=== PATIENT | male | born 1995 | race Caucasian/White ===

== ENCOUNTER 2020-04-11 16:57 | Emergency (ER) | payer BC, SELFPAY ==
--- NOTE | 2020-04-11 17:20 | PC.NURSE ---
PATIENT REPORTS HE WOULD RATHER BE EVALUATED IN [facility]. REPORT GIVEN TO Jerrica DIXON RN.
--- NOTE | 2020-04-11 17:31 | HMH.EDUTC ---
[facility] [place] Disposition Clinical Impression: Diarrhea Qualifiers: Diarrhea type: unspecified type Qualified Code(s): R19.7 - Diarrhea, unspecified Disposition: Home, Self-Care Condition on Discharge: Good Instructions: Diarrhea, Dicyclomine, DI for Nausea -- Adult Additional Instructions: If pain in abdomen returns go straight to ER for further evaluation and treatment *Take medication as prescribed Make sure to call back tomorrow for results of your diarrhea panel Return if needed Follow up with family doctor if no improvement or any worsening of symptoms Straight to ER if any life threatening symptoms ? Drink extra fluids with and between meals. If you have difficulty drinking, try very small amounts of water or suck on ice chips. ? Avoid fruit juices, as these do not replace minerals and can actually increase diarrhea. ? Children and adults can use sports drinks to replenish electrolytes. Younger children and infants should use products formulated for children, like oral rehydration solutions. ? Eat food in small amounts and let your stomach recover. ? Get lots of rest. You may feel tired or weak. ? No greasy or fried foods for the next 24-48 hours BRAT diet Bananas Rice Apples and Bono ? Make sure to drink plenty of liquids ? Return if needed ? Straight to ER if any life threatening symptoms ? Zofran as prescribed ? You was given an outpatient order for diarrhea panel, please collect specimen and bring back to outpatient lab then call back to the [facility] or follow up with family doctor for results ? Follow up with family doctor in the next 48-72 hours if no improvement or any worsening of symptoms Prescriptions: Ondansetron [Zofran 4mg ODT] 4 mg PO Q8HP PRN #10 tab.rapdis PRN Reason: Nausea Transmission Status: Sent to [facility] Dicyclomine HCl [Bentyl 10mg capsule] 10 mg PO TID PRN #15 cap PRN Reason: Cramping Transmission Status: Sent to [facility] Medical Decision Making - Nestor Inquiry Pt receiving controlled substance: No Nestor was queried for this patient: No Vital Signs: 04/11/20 17:13 04/11/20 17:37 Temperature 98.6 F 98.6 F Temperature Source Oral Oral Pulse Rate [Right Brachial] 108 H 108 H Respiratory Rate 16 16 Blood Pressure [Right Arm] 146/98 H 146/98 H Blood Pressure Mean [Right Arm] 114 114 Blood Pressure Source [Right Arm] Automatic Cuff Automatic Cuff Blood Pressure Position [Right Arm] Sitting Sitting 02 Sat by Pulse Oximetry 97 97 Oxygen Delivery Method Room Air Room Air - Lab Data Lab results reviewed: Yes: I reviewed the patient's lab results. Lab Results 04/11/20 17:38: Urine Color Dark yellow, Urine Appearance Clear, Urine pH 6.0, Ur Specific [place] 1.020, Urine Protein 1+, Urine Glucose (UA) Negative, Urine Ketones Negative, Urine Blood Negative, Urine Nitrate Negative, Urine Bilirubin 1+ A, Urine Urobilinogen 0.2, Ur Leukocyte Esterase Negative Orders (Tests/Meds): ED MEDICATIONS Discontinued Medications Generic Name Dose Route Start Last Admin Trade Name Freq PRN Reason Stop Dose Admin Dicyclomine HCl 10 mg 04/11/20 17:34 04/11/20 17:48 Bentyl 10mg Capsule PO 04/11/20 17:35 10 mg ONCE ONE Administration Ondansetron HCl 4 mg 04/11/20 17:34 04/11/20 17:48 Zofran 4mg Odt SL 04/11/20 17:35 4 mg ONCE ONE Administration - Reevaluation(s) Time: 18:20 Reevaluation #1: Discussed with patient and he said he is feeling better medication helped with cramping like pain States that he is feeling better Discussed with patient that due to drinking concerned with pancreatitis and could transfer patient to ED for further work up and evaluation and patient declined transfer states that he will return if pain worsens or continues [facility] [place] HPI - General Stated complaint: stomach pain Diarrhea Time Seen by Provider: 04/11/20 17:31 Mode of Arrival: Ambulatory Limitations: No Limitations Description of Symptoms (Recalled from Allyssa
[2020-04-11 17:37] VITALS: BP 146/98; PULSE 108; RESP 16; TEMP 37; O2SAT 97; BMI 34.3
[2020-04-11 17:39] LABS: Apearance,Urine Clear (Clear); Color,Urine Dark Yellow (Yellow); Glucose,Urine (UA) Negative (Negative); Protein,Urine 1+ (Negative)
[2020-04-11 17:40] LABS: Bilirubin,Urine 1+ (Negative); Blood, Urine Negative (Negative); Ketones,Urine Negative (Negative); UTC Leukocyte Esterase,Urine Negative (Negative); UTC Nitrate,Urine Negative (Negative); Urobilinogen,Urine 0.2 EU/dl (0.2)
[2020-04-11 18:36] VITALS: BP 146/98; PULSE 108; RESP 16; TEMP 37; O2SAT 97
[2020-04-12 14:01] LABS: Adenovirus F 40/41, stool Not Detected (NotDetected); Astrovirus Not Detected (NotDetected); Campylobacter Not Detected (NotDetected); Clostridium Difficile A/B, PCR Not Detected (NotDetected); Cyclospora Cayetanesis Not Detected (NotDetected); Entamoeba histolytica Not Detected (NotDetected); Enteroaggregative E coli Not Detected (NotDetected); Enteropathogenic E coli Not Detected (NotDetected); Enterotoxigenic E coli Not Detected (NotDetected); Giardia lamblia Not Detected (NotDetected); Norovirus Not Detected (NotDetected); Plesimonas Shigalloides, PCR Not Detected (NotDetected); Rotavirus A Not Detected (NotDetected); Salmonella, PCR Not Detected (NotDetected); Sapovirus Not Detected (NotDetected); Shiga-like toxin E coli Not Detected (NotDetected); Shigella Enterovasive E coli Not Detected (NotDetected); Vibrio Cholerae Not Detected (NotDetected); Vibrio, PCR Not Detected (NotDetected); Yersinia Entercolitica, PCR Not Detected (NotDetected)
[2020-04-12 15:53] LABS: Cryptosporidium Detected (NotDetected)
== END 2020-04-11 18:38 | disposition home or self-care (01) ==
PROVIDERS: Emergency Provider Nurse Practitioner
DX: R19.7 Diarrhea, unspecified (principal); R51 Headache
CPT/HCPCS: 81003; 87507; 99202; 99282

== ENCOUNTER → 2021-11-19 09:04 | Outpatient (CLI) | payer OTHER, SELFPAY | PROVIDERS: Visit Provider Nurse Practitioner | DX: U07.1 COVID-19 (principal) | CPT/HCPCS: C9803; U0003; U0005 ==

== ENCOUNTER 2022-02-27 21:04 | Emergency (ER) | payer OTHER, SELFPAY ==
[2022-02-27 21:12] VITALS: BMI 28.7
--- NOTE | 2022-02-27 21:12 | CT_ITS ---
PROCEDURE INFORMATION: Exam: CT Abdomen And Pelvis With Contrast Exam date and time: 02/27/2022 9:30 PM Age: 26 years old Clinical indication: Abdominal pain; Epigastric; Prior surgery; Surgery date: 6+ months; Surgery type: Appendix; Additional info: Abd pain left epigastric area TECHNIQUE: Imaging protocol: Computed tomography of the abdomen and pelvis with contrast. Radiation optimization: All CT scans at this facility use at least one of these dose optimization techniques: automated exposure control; mA and/or kV adjustment per patient size (includes targeted exams where dose is matched to clinical indication); or iterative reconstruction. Contrast material: ISOVUE; Contrast volume: 75 ml; Contrast route: IV; COMPARISON: No relevant prior studies available. FINDINGS: Lungs: Left hemidiaphragm elevation with left lower lung atelectasis. Liver: Normal. No mass. Gallbladder and bile ducts: Gallbladder is contracted. Pancreas: Normal. No ductal dilation. Spleen: Normal. No splenomegaly. Adrenal glands: Normal. No mass. Kidneys and ureters: Normal. No hydronephrosis. Stomach and bowel: Portions of the stomach are not included on these images. The visible portions demonstrate bowel wall thickening. Appendix: No evidence of appendicitis. Intraperitoneal space: Unremarkable. No free air. No significant fluid collection. Vasculature: Unremarkable. No abdominal aortic aneurysm. Lymph nodes: Unremarkable. No enlarged lymph nodes. Urinary bladder: Unremarkable as visualized. Reproductive: Unremarkable as visualized. Bones/joints: Unremarkable. No acute fracture. Soft tissues: Unremarkable. IMPRESSION: Portions of the stomach are not included on these images. The visible portions demonstrate bowel wall thickening. Please correlate for evidence of gastritis.
[2022-02-27 21:16] VITALS: BP 128/94; PULSE 101; RESP 18; TEMP 37; O2SAT 95; BMI 36.3
[2022-02-27 21:22] LABS: Microscopic, Urine URINE MICROSCOPIC (MICROSCOPIC)
[2022-02-27 21:25] LABS: Appearance,Urine CLEAR (Clear); Bilirubin,Urine Negative (Negative); Blood, Urine Negative (Negative); Color,Urine YELLOW (Yellow); Glucose,Urine (UA) Negative (Negative); Ketones,Urine Negative (Negative); Leukocyte Esterase,Urine Negative (Negative); Nitrate,Urine Negative (Negative); Protein,Urine Negative (Negative); Specific Gravity, Urine >= 1.030 (1.005-1.030); Urobilinogen,Urine 0.2 EU/dl (0.2)
--- NOTE | 2022-02-27 21:29 | HMH.EDNVD ---
ED Disposition Clinical Impression: Abdominal pain Qualifiers: Abdominal location: left upper quadrant Qualified Code(s): R10.12 - Left upper quadrant pain Disposition: Home, Self-Care Condition on Discharge: Good Instructions: DI for Acute Abdominal Pain Additional Instructions: use meds and see pcp for follow up Prescriptions: Dicyclomine HCl [Bentyl 10mg capsule] 10 mg PO TID #15 cap Transmission Status: [facility] to [facility] Referrals: Nikita Dubois MD [Primary Care Provider] - - Critical Care Critical Care Time: No Attestation: On 02/27/22, the high probability of a clinically significant, sudden or life threatening deterioration of the following system(s) required my full and direct attention, intervention and personal management. The time I documented below is in addition to time spent performing reported procedures but includes the following listed in this critical care notation. Medical Decision Making - Medical Records Medical records reviewed: Yes: I reviewed the patient's medical records. - Nestor Inquiry Pt receiving controlled substance: No Vital Signs: 02/27/22 21:16 Temperature 98.6 F Temperature Source Oral Pulse Rate [Apical] 101 H Respiratory Rate 18 Blood Pressure [Right Arm] 128/94 H Blood Pressure Mean [Right Arm] 105 Blood Pressure Source [Right Arm] Automatic Cuff Blood Pressure Position [Right Arm] Sitting 02 Sat by Pulse Oximetry 95 Oxygen Delivery Method Room Air - Lab Data Lab results reviewed: Yes: I reviewed the patient's lab results. Lab Results 02/27/22 21:19: Urine Color Yellow, Urine Appearance Clear, Urine pH 6.0, Ur Specific [place] >= 1.030, Urine Protein Negative, Urine Glucose (UA) Negative, Urine Ketones Negative, Urine Blood Negative, Urine Nitrate Negative, Urine Bilirubin Negative, Urine Urobilinogen 0.2, Ur Leukocyte Esterase Negative, Urine RBC Occasional, Urine WBC Occasional, Ur Squamous Epith Cells 3-5, Urine Bacteria Trace 02/27/22 21:22: WBC 11.4 H, RBC 5.57, Hgb 17.0, Hct 50.7, MCV 91.1, MCH 30.5, MCHC 33.5, RDW 13.4, Plt Count 258, MPV 7.9, Neut % (Auto) 65.2, Lymph % (Auto) 25.4, [place] % (Auto) 6.0, Eos % (Auto) 3.4, Baso % (Auto) 4.1 H, Neut # (Auto) 7.5, Lymph # (Auto) 2.9, [place] # (Auto) 0.7, Eos # (Auto) 0.4, Baso # (Auto) 0.5 H, ESR 1 02/27/22 21:22: Sodium 135 L, Potassium 4.5, Chloride 103, Carbon Dioxide 29, Anion Gap 7.5, BUN 17, Creatinine 1.00, Estimated Creat Clear 179, Estimated GFR 89, Est GFR ( Amer) 108, Glucose 123 H, Calcium 9.8, Total Bilirubin 0.4, AST 71 H, ALT 49, Alkaline Phosphatase 56, C-Reactive Protein 2.3, Total Protein 5.8 L, Albumin 3.9, Globulin 1.9, Albumin/Globulin Ratio 2.1 H, Amylase 66, Lipase 112, Procalcitonin 0.074 Result diagrams: 02/27/22 21:22 02/27/22 21:22 Orders (Tests/Meds): ED MEDICATIONS Generic Name Dose Route Start Last Admin Trade Name Freq PRN Reason Stop Dose Admin Sodium Chloride 1,000 mls @ 999 mls/hr 02/27/22 21:15 02/27/22 21:23 Sod Chlor 0.9% 1000ml Bag IV 02/27/22 22:15 999 mls/hr .Q1H1M TERA Administration Sodium Chloride 8 ml 02/27/22 22:56 Sodium Chloride 0.9% 10ml Vial IV 03/29/22 22:55 NEEDED PRN dilute pepcid Discontinued Medications Generic Name Dose Route Start Last Admin Trade Name Freq PRN Reason Stop Dose Admin Famotidine 20 mg 02/27/22 22:56 02/27/22 22:57 Famotidine 20mg/2ml Vial IV 02/27/22 22:57 20 mg ONCE ONE Administration Iopamidol 75 ml 02/27/22 21:40 02/27/22 21:41 Iopamidol-370 (76%);100ml Bottle IV 02/27/22 21:41 75 ml ONCE ONE Administration Ketorolac Tromethamine 30 mg 02/27/22 21:14 02/27/22 21:23 Ketorolac 30mg/Ml Vial IV 02/27/22 21:15 30 mg ONCE ONE Administration Metoclopramide HCl 10 mg 02/27/22 22:55 02/27/22 22:56 Metoclopramide Hcl 10mg/2ml Vial IVP 02/27/22 22:56 10 mg ONCE ONE Administration Ondansetron HCl 4 mg 02/27/22 21:14 02/27/22 21:23
[2022-02-27 21:32] LABS: Basophils # 0.5 K/mm3 (0-0.2); Basophils % 4.1 % (0.1-2.0); Eosinophils # 0.4 K/mm3 (0.0-0.4); Eosinophils % 3.4 % (0.1-12.0); Hematocrit 50.7 % (42.0-52.0); Lymphocytes # 2.9 K/mm3 (0.7-4.5); Lymphocytes % 25.4 % (10-50); Mean Corpuscular HGB Conc 33.5 g/dL (31.8-35.4); Mean Corpuscular Hemoglobin 30.5 pg (27.0-31.2); Mean Corpuscular Volume 91.1 fl (80-94); Mean Platelet Volume 7.9 fl (7.4-10.4); Monocytes # 0.7 K/mm3 (0.1-1.0); Neutrophils # 7.5 K/mm3 (1.8-7.8); Neutrophils % 65.2 % (37.0-80.0); Platelet Count 258 K/mm3 (142-424); Red Blood Count 5.57 M/mm3 (4.60-6.20); Red Cell Distribution Width 13.4 % (11.5-17.5); White Blood Count 11.4 K/mm3 (4.8-10.8)
[2022-02-27 21:35] LABS: Chloride 103 mmol/L (98-107); Potassium 4.5 mmoL/L (3.5-5.1); Sodium 135 mmol/L (136-145)
[2022-02-27 21:37] LABS: Amylase 66 U/L (30-110)
[2022-02-27 21:38] LABS: Alanine Aminotransferase 49 U/L (12-78); Albumin Level 3.9 g/dl (3.5-5.0); Albumin/Globulin Ratio 2.1 (1.1-1.8); Alkaline Phosphatase 56 U/L (38-126); Anion Gap 7.5 mEq/L (5-15); Aspartate Amino Transferase 71 U/L (17-59); Bilirubin,Total 0.4 mg/dl (0.2-1.3); Blood Urea Nitrogen 17 mg/dl (9-20); Calcium 9.8 mg/dl (8.4-10.2); Carbon Dioxide 29 mmol/L (22.0-30.0); Creatinine Clearance Estimated 179 mL/min (50-200); Estimated Glomerular Filt Rate 89 ml/min (>60); GFR (African American) 108 ML/MIN (>60); Globulin 1.9 g/dL (1.3-3.2); Glucose 123 mg/dl (74-100); Lipase 112 U/L (23-300); Total Protein,Serum 5.8 g/dl (6.3-8.2)
[2022-02-27 21:43] LABS: C-Reactive Protein 2.3 mg/L (0-4)
[2022-02-27 21:45] LABS: Bacteria,Urine Trace /lpf; RBC,Urine Occasional #/hpf (0-3); WBC,Urine Occasional #/hpf (0-3)
[2022-02-27 21:55] LABS: Erythrocyte Sedimentation Rate 1 mm/hr (0-15)
[2022-02-27 22:14] LABS: Procalcitonin 0.074 ng/mL (0.0-2.0)
[2022-02-27 23:06] VITALS: BP 124/85; PULSE 80; RESP 18; TEMP 36.7; O2SAT 99
== END 2022-02-27 23:14 | disposition home or self-care (01) ==
PROVIDERS: Emergency Provider Emergency Medicine; PCP Internal Medicine Adolescent Medicine
DX: R10.12 Left upper quadrant pain (principal)
CPT/HCPCS: 74177; 80053; 81001; 82150; 83690; 84145; 85025; 85651; 86140; 96365; 96375; 99284; J2405; Q9967

== ENCOUNTER 2022-03-05 09:10 | Emergency (ER) | payer OTHER, SELFPAY ==
[2022-03-05 09:32] VITALS: BP 122/86; PULSE 92; RESP 18; TEMP 36.8; O2SAT 96; BMI 35.7
--- NOTE | 2022-03-05 09:33 | XR_ITS ---
FINAL REPORT CLINICAL HISTORY: left rib pain FINDINGS: Two views of the chest were obtained. The heart size and pulmonary vascularity are within normal limits. The mediastinum is normal. There is elevation of the left hemidiaphragm. There is left basilar atelectasis. There is no pneumothorax. The bony thorax appears intact. IMPRESSION: Elevated left hemidiaphragm with left basilar atelectasis. Reviewed, Interpreted and Dictated by Silverio Etienne III, MD Transcribed by Mac Chaparro Authenticated by Silverio Etienne III, MD on 03/05/2022 10:20:[address] [facility]
--- NOTE | 2022-03-05 09:43 | HMH.EDUTC ---
[facility] [place] Clinical Impression: Abdominal pain Qualifiers: Abdominal location: left upper quadrant Qualified Code(s): R10.12 - Left upper quadrant pain Pneumonia Qualifiers: Pneumonia type: due to unspecified organism Laterality: left Lung location: lower lobe of lung Qualified Code(s): J18.9 - Pneumonia, unspecified organism Disposition: Home, Self-Care Condition on Discharge: Good Instructions: Pneumonia-Adult Additional Instructions: Start antibiotic today. Be sure to complete entire prescription even if feeling better Tylenol and ibuprofen as needed for pain or fever Humidifier/vaporizer/hot steamy shower Follow-up with primary care tomorrow. keep appointment with Dr Hernandez on Follow-up immediately in the ER of the [facility] for new or worsening symptoms or no noticeable improvement over the next 48-72 hours. Stop smoking Prescriptions: levoFLOXacin [Levaquin 500mg tab] 500 mg PO DAILY 5 Days #5 tab Transmission Status: [facility] Referrals: Provider,Referral, [Primary Care Provider] - Forms: Work/School Release Time of Disposition: 10:30 Medical Decision Making - Nestor Inquiry Pt receiving controlled substance: No Vital Signs: 03/05/22 09:32 Temperature 98.3 F Temperature Source Oral Pulse Rate [Radial] 92 H Respiratory Rate 18 Blood Pressure [Right Arm] 122/86 Blood Pressure Mean [Right Arm] 98 02 Sat by Pulse Oximetry 96 Orders (Tests/Meds): ORDERS Category Date Time Status Helicobacter pylori (Screen) Routine Micro 03/05/22 09:33 [place]collected [facility] [place] - General Chief complaint: [facility] Stated complaint: abd pain, vomiting Time Seen by Provider: 03/05/22 09:43 Mode of Arrival: Ambulatory Source of Information: Patient Limitations: No Limitations Description of Symptoms (Recalled from Triage Doc. by RN): pt here complaining of stomach pain. he was at another hospital a few days ago. has had no relief since then. HEENT Symptoms (Recalled from RN notes): No Resp Symptoms (Recalled from RN notes): No Skin Symptoms (Recalled from RN notes): No MS Symptoms (Recalled from RN notes): No Functional Status (Recalled from RN notes): wnl - History of Present Illness Provider Complaint: 26 yr old male presents for left upper quad pain. was seen in ed and had ct and labs but meds he was given are not helping. pt states pain improves with eating but does not feel like eating. pt states he been researching and thinks he has h pylori. - Related Data Previous Rx's Medication Instructions Recorded Dicyclomine HCl [Bentyl 10mg 10 mg PO TID PRN #15 cap 04/11/20 capsule] Ondansetron [Zofran 4mg ODT] 4 mg PO Q8HP PRN #10 tab.rapdis 04/11/20 Dicyclomine HCl [Bentyl 10mg 10 mg PO TID #15 cap 02/27/22 capsule] levoFLOXacin [Levaquin 500mg 500 mg PO DAILY 5 Days #5 tab 03/05/22 tab] Allergies Allergy/AdvReac Type Severity Reaction Status Date / Time No Known Allergies Allergy Verified 03/05/22 09:35 - Worker's Comp Is this a Worker's Comp case?: No [facility] History - Hepatitis A Screen Attestation statement:: This patient has been screened for Hepatitis A risk factors. I have reviewed the patient's past medical history: Yes - Social History Smoking Status: Never smoker Alcohol Intake: current Alcohol Intake Frequency:: 0-2 drinks per day Occupational Status: employed Household Members: significant other, children ROS Obtained: Yes Systems reviewed as appropriate & no additional complaints - Constitutional Constitutional: Reports system reviewed and no additional complaints, except as docu, Denies fatigue - Eyes Eyes: Reports system reviewed and no additional complaints, except as docu, Denies dry eyes - ENT Ears, Nose, Mouth, and Throat: Reports system reviewed and no additional complaints, except as docu, Denies sore throat - Cardiovascular Cardiovascular: Reports system reviewed and no addition
[2022-03-05 10:35] VITALS: BP 122/86; PULSE 92; RESP 18; TEMP 36.8
[2022-03-06 17:15] LABS: H. pylori Breath Test Negative (Negative)
== END 2022-03-05 10:35 | disposition home or self-care (01) ==
PROVIDERS: Emergency Provider Nurse Practitioner Family
DX: R10.12 Left upper quadrant pain (principal); J18.9 Pneumonia, unspecified organism
CPT/HCPCS: 71046; 83013; 99212; G0463

== ENCOUNTER 2022-09-14 09:12 | Emergency (ER) | payer OTHER, SELFPAY ==
[2022-09-14 10:45] VITALS: BP 148/84; PULSE 89; RESP 18; TEMP 36.8; O2SAT 98; BMI 33.6
--- NOTE | 2022-09-14 11:18 | EXP.UTC ---
Discharge Plan Disposition Patient Disposition: Home, Self-Care Condition: Good Prescriptions Prescriptions: New azithromycin [Zithromax Z-Doyle] 250 mg tablet See Rx Instructions .ROUTE .COMPLEX 5 Days Qty: 6 0RF Rx Instructions: For 250 mg dose pack: take 500 mg today (day 1), then 250 mg for 4 days (days 2-5) prednisone [prednisone] 20 mg tablet 20 mg PO BID 5 Days Qty: 10 0RF guaifenesin [Mucinex] 600 mg tablet extended release 12hr 600 mg PO BID PRN (Reason: cough) Qty: 20 0RF albuterol sulfate [Proventil HFA] 90 mcg/actuation HFA aerosol inhaler 1 inh inhalation Q6H PRN (Reason: shortness of breath or wheezing) Qty: 8.5 0RF No Action ondansetron 4 MG tablet,disintegrating 4 mg PO Q8HP PRN (Reason: Nausea) Qty: 10 0RF dicyclomine 10 MG capsule 10 mg PO TID PRN (Reason: Cramping) Qty: 15 0RF dicyclomine 10 MG capsule 10 mg PO TID Qty: 15 0RF levofloxacin 500 MG tablet 500 mg PO DAILY 5 Days Qty: 5 0RF Referrals Follow up/Referrals: Airam Wang [Primary Care Provider] - See instructions Activity Restrictions/Add. Instructions Additional Instructions/Restrictions: Start antibiotic today. Be sure to complete entire prescription even if feeling better Monitor temp. Tylenol every 4 hours as needed and / or ibuprofen every 6 hours as needed ( As long as your primary care physician has told you that it ok to take both. For fever/aches/pains ER if no less than 101 despite Tylenol or Motrin Humidifier/vaporizer or hot steamy shower Inhaler every 4-6 hours as needed like we discussed. If unsure how to use it, ask pharmacist to demonstrate how. Should help open airways and improve cough, wheezing, and shortness of breath Mucinex during the day for your cough and cough suppressant only at night. Be sure to drink lots of water. Insurance may not cover a prescriptions for mucinex. Might be cheaper to get 400mg tablets and take 2 tablet in the morning, mid-day and evening with lots of water. *Start steroid today. Helps with inflammation therefore, cough and wheezing. Follow directions on the package. Reviewed side effects. Patient reports taking them before. Follow up IMMEDIATELY for new or worsening of symptoms OR no noticeable improvement over the next 48-72 hours. 911 immediately for any life threatening symptoms such as chest pain or difficulty breathing Clinical Impressions Clinical Impression: Sinusitis, Bronchitis Stand Alone Forms Stand Alone Forms: Work/School Release Instructions Patient Instructions: Sinusitis, Acute Bronchitis, DI for Sinusitis Discharge ED Provider: Rachael Jackson [facility] General Stated complaint: possible flu Mode of Arrival: Ambulatory Source of Information: Patient Limitations: No Limitations Time Seen by Provider: 09/14/22 11:18 Description of Symptoms (Recalled from Triage Doc. by RN): PATIENT C/O COUGH AND CONGESTION X 3 DAYS HEENT Symptoms (Recalled from RN notes): No Resp Symptoms (Recalled from RN notes): Yes Skin Symptoms (Recalled from RN notes): No MS Symptoms (Recalled from RN notes): No Functional Status (Recalled from RN notes): WNL History of Present Illness Provider Complaint: Patient states that he has been having cough, sinus and chest congestion for close to a week that has got worse over the last 3 days States that he feels like he may have bronchitis or something and wanted to come in and get checked when he had a little wheezing this morning Related Data Previous Rx's Medication Instructions Recorded dicyclomine 10 mg capsule 10 mg PO TID PRN Cramping #15 caps 04/11/20 ondansetron 4 mg disintegrating 4 mg PO Q8HP PRN Nausea ##10 04/11/20 tablet dicyclomine 10 mg capsule 10 mg PO TID #15 caps 02/27/22 levofloxacin 500 mg tablet 500 mg PO DAILY 5 days #5 tabs 03/05/22 albuterol sulfate 90 mcg/actuation 1 inh inhalation Q6H PRN short
[2022-09-14 11:32] VITALS: BP 148/84; PULSE 89; RESP 18; TEMP 36.8; O2SAT 98
== END 2022-09-14 11:36 | disposition home or self-care (01) ==
PROVIDERS: Emergency Provider Nurse Practitioner; PCP Family Medicine
DX: J40 Bronchitis, not specified as acute or chronic (principal); J32.9 Chronic sinusitis, unspecified
CPT/HCPCS: 99212; G0463

== ENCOUNTER → 2023-06-08 08:44 | Outpatient (CLI) | payer OTHER, SELFPAY ==
--- NOTE | 2023-06-08 08:47 | CA_ITS ---
FINAL REPORT TECHNIQUE: Grayscale, color Doppler and duplex Doppler ultrasound of the kidneys, aorta and renal arteries was performed. Multiple velocities were measured. CLINICAL HISTORY: HTN COMPARISON: None FINDINGS: Aorta velocity: 136 cm/sec Right kidney: 10.5 cm. No evidence of hydronephrosis or mass. Right intrarenal RI: 0.33-0.52 Right renal artery velocity: 165 cm/sec. Right RAR (Renal artery-Aortic Ratio): 1.21 Left Kidney: 11.7 cm. No evidence of hydronephrosis or mass. Left intrarenal RI: 0.39-0.48 Left renal artery velocity: 136 cm/sec. Left RAR (Renal Artery-Aortic Ratio): 0.89 IMPRESSION: No evidence of significant renal artery stenosis. CT angiogram or postcontrast MR angiogram would be more sensitive for evaluation of possible renal artery stenosis. Reviewed, Interpreted and Dictated by Silverio Etienne III, MD Transcribed by Princess Sage Authenticated and [facility]
== END ==
LOC: RT 08:45
PROVIDERS: PCP Physician Assistant; Visit Provider Physician Assistant
DX: I10 Essential (primary) hypertension (principal)
CPT/HCPCS: 93976